=== PATIENT | female | born 1970 | race Caucasian/White ===

== ENCOUNTER 2020-02-23 14:01 | Emergency (ER) | payer OTHER ==
[~2020-02-23] VITALS: Ht 160 cm; Wt 129.5 kg
[~2020-02-23 14:01] MED LIST: CARI350T PO
[2020-02-23] MEDS ORDERED: IV NORMAL SALINE 1,000ML 1,000 ML IV SCH (14:30)
--- NOTE | 2020-02-23 14:34 | RAD ---
Examination: XR CHEST 1V History: dizzy / Comparison/Correlation: None Findings: Portable frontal view chest was obtained. Heart size and pulmonary vasculature are normal. No infiltrate or effusion. Bony structures are unremarkable. No pneumothorax. Impression: No active disease. Electronically signed by: Jovany Gallo MD (02/23/2020 2:31 PM) [id number]
[2020-02-23] MEDS ORDERED: METOCLOPRAMIDE HCL 10 MG/2 ML VIAL. IVP ONE (15:00)
[2020-02-23] MEDS ORDERED: diazePAM 5 MG TABLET. PO ONE (15:00)
[2020-02-23 15:12] LABS: BARBITURATES NEG (NEG); BENZODIAZEPINES NEG (NEG); CANNABINOIDS NEG (NEG); COCAINE NEG (NEG); METHADONE NEG (NEG); OPIATES NEG (NEG); PHENCYCLIDINE NEG (NEG)
[2020-02-23 15:14] LABS: CALCIUM 9.8 mg/dL (8.5-10.1); GFR 58.9; POTASSIUM 4.3 mmol/L (3.5-5.1)
[2020-02-23 15:19] LABS: ALBUMIN 3.8 g/dL (3.4-5.0); ALBUMIN/GLOBULIN RATIO 0.9 (1.0-1.7); MAGNESIUM 2.3 mg/dL (1.8-2.4); TOTAL BILIRUBIN 0.2 mg/dL (0.2-1.0)
[2020-02-23 15:19] LABS: AMPHETAMINE/METHAMPHETAMINE NEG (NEG)
[2020-02-23 15:34] LABS: PREG TEST PT QUAL NEGATIVE (NEG)
[2020-02-23 15:44] VITALS: BP 136/93
[2020-02-23 15:45] LABS: BASO # 0.2 x10^3/uL (0.0-0.2); BASO % 1 % (0-3); EOS # 0.2 x10^3/uL (0.0-0.7); EOS % 1 % (0-3); HEMATOCRIT 44.6 % (36.0-47.0); HEMOGLOBIN 14.8 g/dL (12.0-15.5); LYMPH # 3.8 x10^3/uL (1.0-4.8); LYMPH % 25 % (24-48); MEAN CORPUSCULAR HEMOGLOBIN 28 pg (25-35); MEAN CORPUSCULAR HGB CONC 33 g/dL (31-37); MEAN CORPUSCULAR VOLUME 85 fL (79-100); MONO # 0.9 x10^3/uL (0.0-1.1); MONO % 6 % (0-9); NEUT # 9.9 x10^3uL (1.8-7.7); NEUT % 66 % (31-73); PLATELET COUNT 379 x10^3/uL (140-400); RED BLOOD COUNT 5.24 x10^6/uL (3.50-5.40); RED CELL DISTRIBUTION WIDTH 13.7 % (11.5-14.5); WHITE BLOOD COUNT 15.1 x10^3/uL (4.0-11.0)
[2020-02-23 15:47] LABS: BILIRUBIN,URINE NEG (NEG); CLARITY,URINE CLOUDY; COLOR,URINE YELLOW; GLUCOSE,URINE NEG (NEG); NITRITE,URINE NEG (NEG); UROBILINOGEN,URINE 0.2 mg/dL (0.2 mg/dL)
[2020-02-23 15:49] LABS: BACTERIA,URINE MANY /HPF (0-FEW); SQUAMOUS EPITHELIAL CELL,UR MANY /LPF
--- NOTE | 2020-02-23 16:08 | PHYS DOC ---
Past History Past Medical History: Anxiety, Depression, Other Additional Past Medical Histor: PERIPHERAL NEUROPATHY Past Surgical History: Cholecystectomy, , Hysterectomy, Tubal ligation Alcohol Use: Sober General Adult EDM: Chief Complaint: DIZZY/LIGHT HEADED HPI: HPI: 49-year-old female past medical history significant for anxiety, depression and BPPV, presents to the ED with complaints of "dizziness" described as "I feel like I'm going to fall over," that started yesterday while watching tv. Pt reports sxs only occur with sudden movements or sudden changes in positions ( sitting to standing, etc). States she's had similar sxs before " I found crystals in my right ear." Reports she is out of her Antivert rx. Associated mild nausea. No h/o head/neck trauma or recent URI. No associated hearing loss, tinnitus, syncope or loss of consciousness, vomiting, chest pain, dyspnea, back pain, abnormal gait, neck stiffness, fever, neck pain or blurry vision. Denies any alcohol/illicit drug use. Currently does not have the sxs at rest. Review of Systems: Review of Systems: Constitutional: Denies fever or chills Eyes: Denies change in visual acuity HENT: Denies nasal congestion or sore throat Respiratory: Denies cough or shortness of breath Cardiovascular: Denies chest pain or edema GI: Denies abdominal pain, vomiting, bloody stools or diarrhea : Denies dysuria or hematuria Musculoskeletal: Denies back pain or joint pain Integument: Denies rash Neurologic: Denies headache, focal weakness or sensory changes Endocrine: Denies polyuria or polydipsia Lymphatic: Denies swollen glands Psychiatric: Denies depression or anxiety Current Medications: Current Meds: Current Medications Medications (Trade) Dose Ordered Sig/Talya Start Time Stop Time Status Last Admin Dose Admin Diazepam (Valium) 10 mg 1X ONCE 02/23/20 15:00 02/23/20 15:01 DC 02/23/20 15:22 10 MG Metoclopramide HCl (Reglan Vial) 10 mg 1X ONCE 02/23/20 15:00 02/23/20 15:01 DC 02/23/20 15:20 10 MG Sodium Chloride 1,000 ml @ 1,000 mls/hr Q1H 02/23/20 14:30 02/23/20 15:29 DC 02/23/20 15:19 1,000 MLS/HR Allergies: Allergies: Allergies Coded Allergies Type Severity Reaction Last Updated Verified Penicillins Allergy Unknown 05/01/15 Yes Sulfa (Sulfonamide Antibiotics) Allergy Unknown 05/01/15 Yes ciprofloxacin Allergy Unknown 05/01/15 Yes hydrocodone Allergy Unknown 05/01/15 Yes morphine Allergy Unknown 05/01/15 Yes naproxen Allergy Unknown 05/01/15 Yes Physical Exam: PE: Constitutional: Well developed, well nourished, no acute distress, non-toxic appearance. HENT: Normocephalic, atraumatic, no nystagmus, no nuchal rigidity or meningismus, Eyes: TRAVIS, EOMI, conjunctiva normal, no discharge. Neck: Normal range of motion, supple, Cardiovascular: S1/2 present, regular rhythm Lungs & Thorax: Speaking in full sentences, bilateral equal chest rise, no tachypnea or increased work of breathing Abdomen: soft, no tenderness, Skin: Warm, dry, no erythema, no rash. [] Back: No tenderness, no CVA tenderness. [] Extremities: No tenderness, no cyanosis, no edema Neurologic: Alert and oriented X 3, normal motor function, normal sensory function, no focal deficits noted, CN 2-12 intact, normal FNF/SERJIO, steagy gait- no ataxia, Psychologic: Affect normal, judgement normal, mood normal. [] Current Patient Data: Labs: Laboratory Tests Test 02/23/20 14:30 02/23/20 14:45 Urine Collection Type Unknown Urine Color Yellow Urine Clarity Cloudy Urine pH 6.0 Urine Specific Leiter 1.015 Urine Protein Neg (NEG-TRACE) Urine Glucose (UA) Neg mg/dL (NEG) Urine Ketones (Stick) Neg mg/dL (NEG) Urine Blood Small (NEG) Urine Nitrite Neg (NEG) Urine Bilirubin Neg (NEG) Urine Urobilinogen Dipstick 0.2 mg/dL (0.2 mg/dL) Urine Leukocyte Esterase Neg (NEG) Urine RBC 3-5 /HPF (0-2) Urine WBC 5-10 /HPF (0-4) Urine Squamous Epithelial Cells Many /LPF Urine Bacteria Many /HPF (0-FEW) Urine Opiates Screen Neg (NEG) Urine Methadone Screen Neg (NEG) Urine Barbiturates Neg (NEG) Urine Phencyclidine Screen Neg (NEG) Urine Amphetamine/Methamphetamine Neg (NEG) Urine Benzodiazepines Screen Neg (NEG) Urine Cocaine Screen Neg (NEG) Urine Cannabinoids Screen Neg (NEG) Urine Ethyl Alcohol Neg (NEG) White Blood Count 15.1 x10^3/uL (4.0-11.0) H Red Blood Count 5.24 x10^6/uL (3.50-5.40) Hemoglobin 14.8 g/dL (12.0-15.5) Hematocrit 44.6 % (36.0-47.0) Mean Corpuscular Volume 85 fL (79-100) Mean Corpuscular Hemoglobin 28 pg (25-35) Mean Corpuscular Hemoglobin Concent 33 g/dL (31-37) Red Cell Distribution Width 13.7 % (11.5-14.5) Platelet Count 379 x10^3/uL (140-400) Neutrophils (%) (Auto) 66 % (31-73) Lymphocytes (%) (Auto) 25 % (24-48) Monocytes (%) (Auto) 6 % (0-9) Eosinophils (%) (Auto) 1 % (0-3) Basophils (%) (Auto) 1 % (0-3) Neutrophils # (Auto) 9.9 x10^3uL (1.8-7.7) H Lymphocytes # (Auto) 3.8 x10^3/uL (1.0-4.8) Monocytes # (Auto) 0.9 x10^3/uL (0.0-1.1) Eosinophils # (Auto) 0.2 x10^3/uL (0.0-0.7) Basophils # (Auto) 0.2 x10^3/uL (0.0-0.2) Sodium Level 137 mmol/L (136-145) Potassium Level 4.3 mmol/L (3.5-5.1) Chloride Level 101 mmol/L (98-107) Carbon Dioxide Level 24 mmol/L (21-32) Anion Gap 12 (6-14) Blood Urea Nitrogen 15 mg/dL (7-20) Creatinine 1.0 mg/dL (0.6-1.0) Estimated GFR (Cockcroft-Gault) 58.9 BUN/Creatinine Ratio 15 (6-20) Glucose Level 132 mg/dL (70-99) H Calcium Level 9.8 mg/dL (8.5-10.1) Magnesium Level 2.3 mg/dL (1.8-2.4) Total Bilirubin 0.2 mg/dL (0.2-1.0) Aspartate Amino Transferase (AST) 17 U/L (15-37) Alanine Aminotransferase (ALT) 36 U/L (14-59) Alkaline Phosphatase 102 U/L (46-116) Troponin I Quantitative < 0.017 ng/mL (0-0.055) Total Protein 8.0 g/dL (6.4-8.2) Albumin 3.8 g/dL (3.4-5.0) Albumin/Globulin Ratio 0.9 (1.0-1.7) L Lipase 176 U/L (73-393) Serum Test, Qualitative Negative (NEG) Vital Signs: Vital Signs Date Time Temp Pulse Resp B/P (MAP) Pulse Ox O2 Delivery O2 Flow Rate FiO2 02/23/20 15:22 87 20 146/85 (105) 98 Room Air 02/23/20 14:10 98.2 EKG: EKG: Sinus rhythm 84 bpm, no axis deviation, normal intervals, T wave inversion V2, no ST elevations or ST depressions Radiology/Procedures: Radiology/Procedures: IMAGING REPORT Signed PATIENT: TYRONE GOLDMAN ACCOUNT: [id number] : 1970 LOCATION: ER AGE: 49 SEX: F EXAM STATUS: REG ER ORD. PHYSICIAN: SUHAIL MAYS DO REASON: dizzy PROCEDURE: PORTABLE CHEST 1V Examination: XR CHEST 1V History: dizzy / Comparison/Correlation: None Findings: Portable frontal view chest was obtained. Heart size and pulmonary vasculature are normal. No infiltrate or effusion. Bony structures are unremarkable. No pneumothorax. Impression: No active disease. Electronically signed by: Jovany Salvador MD (02/23/2020 2:31 PM) [id number] DICTATED AND SIGNED BY: OJVANY SALVADOR MD DATE: 02/23/20 143 CC: DRAE STOUT; SUHAIL MAYS DO ~MTH0 0 Heart Score: Risk Factors: Risk Factors: DM, Current or recent (<one month) smoker, HTN, HLP, family history of CAD, obesity. Risk Scores: Score 0 - 3: 2.5% MACE over next 6 weeks - Discharge Home Score 4 - 6: 20.3% MACE over next 6 weeks - Admit for Clinical Observation Score 7 - 10: 72.7% MACE over next 6 weeks - Early Invasive Strategies Course & Med Decision Making: Course & Med Decision Making Pertinent Labs and Imaging studies reviewed. (See chart for details) Concern for brief episodes of vertigo (lasting less than a few minutes), only with quick positional changes. No dizziness in ed-thus hints exam cannot be performed. Valium given in ed. U/A contaminated -no LE/nitrites. Pt with no UTI sxs. Will DC home with Antivert or meclizine. Will discharge home with strict ED return precautions were given for persistent dizziness, inability to ambulate, severe headache, nausea, vomiting or neurologic deficits. Encouraged urgent outpatient follow-up with PMD and ent as an outpatient evaluation for dizziness. Life-threatening processes were considered but are low suspicion at this time, given history, physical exam and ED workup. Pt was educated on all prescription medications and adverse effects. All patient's questions were answered and pt was stable at time of discharge. Life/limb-threatening differential includes but is not limited to, cerebrovascular accident, cerebellar stroke, acute coronary syndrome, carbon monoxide poisoning or other toxidrome, syncope differential including cardiac arrhythmia/PE/aortic aneurysm or dissection/ACS, Guillan [place] syndrome, thyroid disease, infection, central and peripheral vertigo, intracranial hemorrhage, vertebrobasilar insufficiency, heat stroke, electrolyte disorder, rheumatologic or autoimmune disorder I spoken with the patient and her caregivers. I explained the patient's condition, diagnoses and treatment plan based on the information available to me at this time. I have answered the patient and her caregiver's questions and addressed any concerns. The patient and her caregivers have a good understanding of patient's diagnosis, condition and treatment plan as can be expected at this point. Vital signs have been stable. Patient's condition is stable and appropriate for discharge from the emergency department. Patient will pursue further outpatient evaluation with primary care physician or other designated or consulting physician as outlined in the discharge instructions. The patient and/or caregivers are agreeable to this plan of care and follow-up instructions have been explained in detail. The patient and/or caregivers have received these instructions in written form and have expressed an understanding of the discharge instructions. The patient and/or caregivers are aware that any significant change of condition or worsening of symptoms should prompt immediate return to this or the closest emergency department or call to 128Sheyla Brice Disclaimer: Babs Disclaimer: This electronic medical record was generated, in whole or in part, using a voice recognition dictation system. Departure Departure: Impression: Primary Impression: Dizziness Disposition: 01 DC HOME SELF CARE/HOMELESS Condition: STABLE Referrals: DREA STOUT (PCP) within 3- 5 days Patient Instructions: Dizziness, Vertigo Additional Instructions: FOLLOW UP WITH ENT: Kiko Mathias DO [address], [address] [place] [address] OR [phone] & Maxillofacial Surgery, [facility]. [address] [place] [address] EMERGENCY DEPARTMENT GENERAL DISCHARGE INSTRUCTIONS Thank you for coming to [facility] (ED) today and trusting us with you care. We trust that you had a positivie experience in our Emergency Department. If you wish to speak to the department management, you may call the director at [phone]. YOUR FOLLOW UP INSTRUCTIONS ARE FOLLOWS: 1. Do you have a private Doctor? If you do not have a private doctor, please ask for a resource list of physicians or clinics that may be able to assist you with follow up care. 2. The Emergency Physician has interpreted your x-rays. The X-Ray specialist will also review them. If there is a change in the findings, you will be notified in 48 hours when at all possible. 3. A lab test or culture has been done, your results will be reviewed and you will be notified if you need a change in treatment. ADDITIONAL INSTRUCTIONS AND INFORMATION: 1. Your care today has been supervised by a physician who is specially trained in emergency care. Many problems require more than one evaluation for a complete diagnosis and treatment. We recommend that you schedule your follow up appointment as recommended to ensure complete treatment of you illness or injury. If you are unable to obtain follow up care and continue to have a problem, or if your condition worsens, we recommend that you return to the ED. 2. We are not able to safely determine your condition over the phone nor are we able to give sound medical advice over the phone. For these safety reasons, if you call for medical advice we will ask you to come to the ED for further evaluation. 3. If you have any questions regarding these discharge instructions please call the ED at [phone]. SAFETY INFORMATION: In the interest of safety, wellness, and injury prevention; we encourage you to wear your sealbelt, if you smoke; quite smoking, and we encourage family to use a pr otective helmet for bicycling and other sporting events that present an increased risk for head injury. IF YOUR SYMPTOMS WORSEN OR NEW SYMPTOMS DEVELOP, OR YOU HAVE CONCERNS ABOUT YOUR CONDITION; OR IF YOUR CONDITION WORSENS WHILE YOU ARE WAITING FOR YOUR FOLLOW UP APPOINTMENT; EITHER CONTACT YOUR PRIMARY CARE DOCTOR, THE PHYSICIAN WHOSE NAME AND NUMBER YOU WERE GIVEN, OR RETURN TO THE ED IMMEDIATELY. Scripts Ondansetron Hcl (ZOFRAN) 4 Mg Tablet 1 TAB PO PRN Q6HRS PRN for NAUSEA, #20 TAB Prov: SUHAIL MAYS DO 02/23/20 Meclizine Hcl (MECLIZINE HCL) 25 Mg Tablet 1 TAB PO TID for dizziness, #90 TAB Prov: SUHAIL MAYS DO 02/23/20 SUHAIL MAYS DO Feb 23, 2020 16:08
[2020-02-23] MEDS ORDERED: ONDA4TAB7 PO (16:14)
[2020-02-23] MEDS ORDERED: MECL-75 PO (16:14)
--- NOTE | 2020-02-23 20:11 | EKG ---
[address] [address] Test Date: 2020-02-23 Test Time: 15:06:39 Pat Name: TYRONE GOLDMAN Department: Room: Gender: F Tunnel Man: : 1970 Requested By: SUHAIL MAYS Order Number: [id number] Reading MD: Measurements Intervals [place] Rate: 84 P: 38 WA: 178 QRS: 2 QRSD: 78 T: 35 QT: 370 QTc: 440 Interpretive Statements SINUS RHYTHM QRS(T) CONTOUR ABNORMALITY CONSISTENT WITH SEPTAL INFARCT AGE UNDETERMINED ABNORMAL ECG RI6.02 No previous ECG available for comparison
== END 2020-02-23 16:30 | disposition home or self-care (01) ==
LOC: ER 14:01
DX: R42 Dizziness and giddiness (principal); R11.0 Nausea; F41.9 Anxiety disorder, unspecified; F32.9 Major depressive disorder, single episode, unspecified; Z98.51 Tubal ligation status; Z90.49 Acquired absence of other specified parts of digestive tract; Z90.710 Acquired absence of both cervix and uterus; Z98.890 Other specified postprocedural states; Z88.0 Allergy status to penicillin; Z88.2 Allergy status to sulfonamides; Z88.6 Allergy status to analgesic agent; Z88.1 Allergy status to other antibiotic agents; Z88.8 Allergy status to other drugs, medicaments and biological substances
CPT/HCPCS: 36415; 71045; 80053; 80307; 81001; 83690; 83735; 84484; 84703; 85025; 87086; 93005; 96361; 96374; 99285; J2765; J7030

== ENCOUNTER 2020-03-29 10:46 | Emergency (ER) | payer BC, OTHER ==
[~2020-03-29] VITALS: Ht 160 cm; Wt 130.0 kg
[~2020-03-29 10:46] MED LIST changes: +MECL-75 PO; +ONDA4TAB7 PO
[2020-03-29 12:09] LABS: BASO # 0.1 x10^3/uL (0.0-0.2); BASO % 1 % (0-3); EOS # 0.2 x10^3/uL (0.0-0.7); EOS % 2 % (0-3); HEMATOCRIT 38.9 % (36.0-47.0); HEMOGLOBIN 12.9 g/dL (12.0-15.5); LYMPH # 2.4 x10^3/uL (1.0-4.8); LYMPH % 21 % (24-48); MEAN CORPUSCULAR HEMOGLOBIN 29 pg (25-35); MEAN CORPUSCULAR HGB CONC 33 g/dL (31-37); MEAN CORPUSCULAR VOLUME 87 fL (79-100); MONO # 0.6 x10^3/uL (0.0-1.1); MONO % 6 % (0-9); NEUT % 71 % (31-73); PLATELET COUNT 391 x10^3/uL (140-400); RED CELL DISTRIBUTION WIDTH 13.8 % (11.5-14.5); WHITE BLOOD COUNT 11.2 x10^3/uL (4.0-11.0)
[2020-03-29 12:26] LABS: BACTERIA,URINE FEW /HPF (0-FEW); BILIRUBIN,URINE NEG (NEG); CLARITY,URINE HAZY; COLOR,URINE YELLOW; GLUCOSE,URINE NEG (NEG); NITRITE,URINE NEG (NEG); UROBILINOGEN,URINE 0.2 mg/dL (0.2 mg/dL)
[2020-03-29 12:27] LABS: AMORPHOUS SEDIMENT,UR PRESENT /HPF; SQUAMOUS EPITHELIAL CELL,UR MOD /LPF
--- NOTE | 2020-03-29 12:32 | PHYS DOC ---
Past History Past Medical History: Anxiety, Diabetes Additional Past Medical Histor: stomach ulcer Past Surgical History: Appendectomy, Cholecystectomy, , Hysterectomy Alcohol Use: None General Adult EDM: Chief Complaint: ABDOMINAL PAIN HPI: HPI: Patient is a 49-year-old female coming in for upper abdominal pain and left flank pain. Patient states she has a history of gastritis and eat spicy food last night. She felt vibration to bed that symptoms woke her up at 2 AM. Has taken some Tums without improvement. Does not take any daily antacid medications. Patient had nausea without vomiting, has had diarrhea. No headaches, no urinary complaints, no fevers, cough, chest pain. Review of Systems: Review of Systems: All other systems within normal limits except for as noted in the HPI Allergies: Allergies: Allergies Coded Allergies Type Severity Reaction Last Updated Verified Penicillins Allergy Unknown 05/01/15 Yes Sulfa (Sulfonamide Antibiotics) Allergy Unknown 05/01/15 Yes ciprofloxacin Allergy Unknown 05/01/15 Yes hydrocodone Allergy Unknown 05/01/15 Yes morphine Allergy Unknown 05/01/15 Yes naproxen Allergy Unknown 05/01/15 Yes Physical Exam: PE: Constitutional: Well developed, well nourished, no acute distress, non-toxic appearance. [] HENT: Normocephalic, atraumatic, bilateral external ears normal, nose normal. [] Eyes: PERRLA, conjunctiva normal, no discharge. [] Neck: No rigidity, supple, no stridor. [] Cardiovascular: Regular rate and rhythm, brisk cap refill [] Lungs & Thorax: Non labored symmetric respirations, no tachypnea or respiratory distress [] Abdomen: Soft, nondistended, epigastric and right upper quadrant tenderness, no guarding or rebound.. Skin: Warm, dry, no erythema, no rash. [] Back: Unremarkable, left CVA tenderness Extremities: No deformities, range of motion grossly intact, no lower extremity edema [] Neurologic: Alert and oriented X 3, no focal deficits noted. [] Psychologic: Affect normal, judgement normal, mood normal. [] Current Patient Data: Labs: Laboratory Tests Test 03/29/20 11:49 White Blood Count 11.2 x10^3/uL (4.0-11.0) H Red Blood Count 4.50 x10^6/uL (3.50-5.40) Hemoglobin 12.9 g/dL (12.0-15.5) Hematocrit 38.9 % (36.0-47.0) Mean Corpuscular Volume 87 fL (79-100) Mean Corpuscular Hemoglobin 29 pg (25-35) Mean Corpuscular Hemoglobin Concent 33 g/dL (31-37) Red Cell Distribution Width 13.8 % (11.5-14.5) Platelet Count 391 x10^3/uL (140-400) Neutrophils (%) (Auto) 71 % (31-73) Lymphocytes (%) (Auto) 21 % (24-48) L Monocytes (%) (Auto) 6 % (0-9) Eosinophils (%) (Auto) 2 % (0-3) Basophils (%) (Auto) 1 % (0-3) Neutrophils # (Auto) 8.0 x10^3uL (1.8-7.7) H Lymphocytes # (Auto) 2.4 x10^3/uL (1.0-4.8) Monocytes # (Auto) 0.6 x10^3/uL (0.0-1.1) Eosinophils # (Auto) 0.2 x10^3/uL (0.0-0.7) Basophils # (Auto) 0.1 x10^3/uL (0.0-0.2) Vital Signs: Vital Signs Date Time Temp Pulse Resp B/P (MAP) Pulse Ox O2 Delivery O2 Flow Rate FiO2 03/29/20 10:50 98.9 93 16 157/87 (110) 96 Room Air EKG: EKG: [] Radiology/Procedures: Radiology/Procedures: Exam: CT abdomen/pelvis with intravenous contrast Indication: Upper abdominal pain Comparison: None Technique: Helical CT imaging performed of the abdomen and pelvis after the intravenous administration of 75 mL Omnipaque 300 contrast. Sagittal and coronal reformats were obtained. One or more of the following individualized dose reduction techniques were utilized for this examination: 1. Automated exposure control 2. Adjustment of the mA and/or kV according to patient size 3. Use of iterative reconstruction technique. Findings: Lower chest: Minimal atelectasis in the lung bases. Heart is normal in size. Liver: Liver is mildly enlarged measuring 20 cm. No focal lesion. Gallbladder/Biliary Tree: The gallbladder is not visualized. Bile ducts are normal. Pancreas: Normal. Spleen: Normal. Adrenal Glands: Normal. Kidneys/Ureters/Bladder: Kidneys, ureters, and bladder are normal. Reproductive Organs: Uterus is surgically absent. No adnexal mass. Stomach, small bowel, and colon: Stomach, small bowel, and colon are normal. Appendix is not visualized. Vasculature: Abdominal aorta is normal in caliber. Lymph Nodes: There are few prominent portacaval lymph nodes measuring up to 1 cm short axis, nonspecific. Peritoneum and retroperitoneum: No free fluid or free air. Bones: No acute osseous abnormality. Impression: 1. No acute abnormality. 2. Mild hepatomegaly.[] Heart Score: Risk Factors: Risk Factors: DM, Current or recent (<one month) smoker, HTN, HLP, family history of CAD, obesity. Risk Scores: Score 0 - 3: 2.5% MACE over next 6 weeks - Discharge Home Score 4 - 6: 20.3% MACE over next 6 weeks - Admit for Clinical Observation Score 7 - 10: 72.7% MACE over next 6 weeks - Early Invasive Strategies Course & Med Decision Making: Course & Med Decision Making Pertinent Labs and Imaging studies reviewed. (See chart for details) [] Dragon Disclaimer: Dragon Disclaimer: This electronic medical record was generated, in whole or in part, using a voice recognition dictation system. Departure Departure: Impression: Primary Impression: Gastroenteritis Disposition: 01 DC HOME SELF CARE/HOMELESS Condition: STABLE Referrals: DREA STOUT (PCP) Patient Instructions: Diet for Gastroesophageal Reflux Disease, Adult Scripts Ondansetron (ONDANSETRON ODT) 4 Mg Tab.rapdis 1 TAB PO PRN Q6-8HRS PRN for na for 5 Days, #16 TAB Prov: SANDRA JO MD 03/29/20 Dicyclomine Hcl (DICYCLOMINE HCL) 20 Mg Tablet 1 TAB PO TID PRN for ABDOMINAL CRAMPS for 5 Days, #15 TAB 1 Refill Prov: SANDRA JO MD 03/29/20 SANDRA JO MD Mar 29, 2020 12:32
[2020-03-29] MEDS ORDERED: IOHEXOL 300 MG/ML 75 ML VIAL. PO ONE (13:00)
[2020-03-29 13:53] LABS: CALCIUM 8.9 mg/dL (8.5-10.1); GFR 58.9; POTASSIUM 3.9 mmol/L (3.5-5.1)
[2020-03-29 13:58] LABS: ALBUMIN 3.2 g/dL (3.4-5.0); ALBUMIN/GLOBULIN RATIO 0.8 (1.0-1.7); TOTAL BILIRUBIN 0.2 mg/dL (0.2-1.0); TOTAL PROTEIN 7.4 g/dL (6.4-8.2)
[2020-03-29 14:17] VITALS: BP 142/70
[2020-03-29] MEDS ORDERED: LIDO:MAALOX 1:1 20 ML SINGLE DOSE. PO ONE (14:30)
--- NOTE | 2020-03-29 14:52 | RAD ---
Exam: CT abdomen/pelvis with intravenous contrast Indication: Upper abdominal pain Comparison: None Technique: Helical CT imaging performed of the abdomen and pelvis after the intravenous administratio n of 75 mL Omnipaque 300 contrast. Sagittal and coronal reformats were obtained. One or more of the following individualized dose reduction techniques were utilized for this examinat ion: 1. Automated exposure control 2. Adjustment of the mA and/or kV according to patient size 3. Use of iterative reconstruction technique. Findings: Lower chest: Minimal atelectasis in the lung bases. Heart is normal in size. Liver: Liver is mildly enlarged measuring 20 cm. No focal lesion. Gallbladder/Biliary Tree: The gallbladder is not visualized. Bile ducts are normal. Pancreas: Normal. Spleen: Normal. Adrenal Glands: Normal. Kidneys/Ureters/Bladder: Kidneys, ureters, and bladder are normal. Reproductive Organs: Uterus is surgically absent. No adnexal mass. Stomach, small bowel, and colon: Stomach, small bowel, and colon are normal. Appendix is not visualiz ed. Vasculature: Abdominal aorta is normal in caliber. Lymph Nodes: There are few prominent portacaval lymph nodes measuring up to 1 cm short axis, nonspeci fic. Peritoneum and retroperitoneum: No free fluid or free air. Bones: No acute osseous abnormality. Impression: 1. No acute abnormality. 2. Mild hepatomegaly. Electronically signed by: Aleja Amezquita MD (03/29/2020 2:49 PM) [id number]
[2020-03-29] MEDS ORDERED: ONDA4TAB12 PO (15:04)
[2020-03-29] MEDS ORDERED: DICY20TA3 PO (15:04)
== END 2020-03-29 15:10 | disposition home or self-care (01) ==
LOC: ER 10:46
DX: K52.9 Noninfective gastroenteritis and colitis, unspecified (principal); R10.13 Epigastric pain; R10.11 Right upper quadrant pain; E11.9 Type 2 diabetes mellitus without complications; F41.9 Anxiety disorder, unspecified; Z90.49 Acquired absence of other specified parts of digestive tract; Z90.89 Acquired absence of other organs; Z98.890 Other specified postprocedural states; Z90.710 Acquired absence of both cervix and uterus; Z88.0 Allergy status to penicillin; Z88.2 Allergy status to sulfonamides; Z88.5 Allergy status to narcotic agent; Z88.1 Allergy status to other antibiotic agents
CPT/HCPCS: 36415; 74177; 80053; 81001; 83690; 85025; 99285; Q9967

== ENCOUNTER 2020-07-22 22:02 | Emergency (ER) | payer BC, OTHER ==
[~2020-07-22] VITALS: Ht 160 cm; Wt 127.0 kg
[~2020-07-22 22:02] MED LIST changes: +DICY20TA3 PO; +ONDA4TAB12 PO
[2020-07-22] MEDS ORDERED: predniSONE 20 MG TABLET PO ONE (22:30)
[2020-07-22] MEDS ORDERED: PRED20TA PO (22:31)
--- NOTE | 2020-07-22 22:31 | PHYS DOC ---
Past History Past Medical History: Anxiety, Diabetes Additional Past Medical Histor: stomach ulcer Past Surgical History: Appendectomy, Cholecystectomy, , Hysterectomy Alcohol Use: None General Adult EDM: Chief Complaint: HIP PAIN HPI: HPI: 49-year-old female presents with right hip pain. The patient states she has had increased pain over the last 2 days. It is mostly painful as she walks or when her hip flexes. She points to the lateral part of the hip as the source of pain. She denies any falls or trauma. She tells me that she has some kind of a degenerative bone disorder. She is able to walk. She has no other complaints at this time. Review of Systems: Review of Systems: Constitutional: Denies fever or chills Eyes: Denies change in visual acuity HENT: Denies nasal congestion or sore throat Respiratory: Denies cough or shortness of breath Cardiovascular: Denies chest pain or edema GI: Denies abdominal pain, nausea, vomiting, bloody stools or diarrhea : Denies dysuria Musculoskeletal: Right hip pain Integument: Denies rash Neurologic: Denies headache, focal weakness or sensory changes Endocrine: Denies polyuria or polydipsia Lymphatic: Denies swollen glands Psychiatric: Denies depression or anxiety Allergies: Allergies: Allergies Coded Allergies Type Severity Reaction Last Updated Verified Penicillins Allergy Unknown 05/01/15 Yes Sulfa (Sulfonamide Antibiotics) Allergy Unknown 05/01/15 Yes ciprofloxacin Allergy Unknown 05/01/15 Yes hydrocodone Allergy Unknown 05/01/15 Yes morphine Allergy Unknown 05/01/15 Yes naproxen Allergy Unknown 05/01/15 Yes Physical Exam: PE: Constitutional: Well developed, well nourished, morbidly obese, no acute distress, non-toxic appearance. [] HENT: Normocephalic, atraumatic, bilateral external ears normal, oropharynx moist, no oral exudates, nose normal. [] Eyes: PERRLA, EOMI, conjunctiva normal, no discharge. [] Neck: Normal range of motion, no tenderness, supple, no stridor. [] Cardiovascular:Heart rate regular rhythm, no murmur [] Lungs & Thorax: Bilateral breath sounds clear to auscultation [] Abdomen: Bowel sounds normal, soft, no tenderness, no masses, no pulsatile masses. [] Skin: Warm, dry, no erythema, no rash. [] Back: No tenderness, no CVA tenderness. [] Extremities: Tenderness over the right femur greater tuberosity. No obvious erythema, warmth, or ecchymosis of the skin. [] Neurologic: Alert and oriented X 3, normal motor function, normal sensory function, no focal deficits noted. [] Psychologic: Affect normal, judgement normal, mood normal. [] EKG: EKG: [] Radiology/Procedures: Radiology/Procedures: [] Heart Score: C/O Chest Pain: N/A Risk Factors: Risk Factors: DM, Current or recent (<one month) smoker, HTN, HLP, family history of CAD, obesity. Risk Scores: Score 0 - 3: 2.5% MACE over next 6 weeks - Discharge Home Score 4 - 6: 20.3% MACE over next 6 weeks - Admit for Clinical Observation Score 7 - 10: 72.7% MACE over next 6 weeks - Early Invasive Strategies Course & Med Decision Making: Course & Med Decision Making Pertinent Labs and Imaging studies reviewed. (See chart for details) Patient appears to have trochanteric bursitis. I will treat her with prednisone for 4 days. We will give the first dose in the ED. She is stable for discharge at this time. [] Dragon Disclaimer: Dragon Disclaimer: This electronic medical record was generated, in whole or in part, using a voice recognition dictation system. Departure Departure: Impression: Primary Impression: Trochanteric bursitis, right hip Disposition: HOME / SELF CARE / HOMELESS Condition: STABLE Referrals: DREA STOUT (PCP) Patient Instructions: Trochanteric Bursitis-SportsMed Scripts Prednisone (PREDNISONE) 20 Mg Tablet 3 TAB PO DAILY for trochanteric bursitis for 3 Days, #9 TAB Prov: RADHA BAKER DO 07/22/20 RADHA BAKER DO Jul 22, 2020 22:31
[2020-07-22 22:45] VITALS: BP 149/90
== END 2020-07-22 22:45 | disposition home or self-care (01) ==
LOC: ER 22:02
DX: M70.61 Trochanteric bursitis, right hip (principal); E66.01 Morbid (severe) obesity due to excess calories; F41.9 Anxiety disorder, unspecified; E11.9 Type 2 diabetes mellitus without complications; Z68.42 Body mass index [BMI] 45.0-49.9, adult; Z88.0 Allergy status to penicillin; Z88.2 Allergy status to sulfonamides; Z88.1 Allergy status to other antibiotic agents; Z88.5 Allergy status to narcotic agent; Z88.8 Allergy status to other drugs, medicaments and biological substances; Y93.89 Activity, other specified
CPT/HCPCS: 99283; J7512

== ENCOUNTER → 2020-10-10 | Outpatient (CLI) | payer BC ==
[~2020-10-10] MED LIST changes: +PRED20TA PO
[2020-10-10 10:48] LABS: BASO # 0.1 x10^3/uL (0.0-0.2); BASO % 1 % (0-3); EOS # 0.3 x10^3/uL (0.0-0.7); EOS % 4 % (0-3); HEMATOCRIT 40.5 % (36.0-47.0); HEMOGLOBIN 13.6 g/dL (12.0-15.5); LYMPH # 3.2 x10^3/uL (1.0-4.8); LYMPH % 35 % (24-48); MEAN CORPUSCULAR HEMOGLOBIN 29 pg (25-35); MEAN CORPUSCULAR HGB CONC 34 g/dL (31-37); MEAN CORPUSCULAR VOLUME 87 fL (79-100); MONO # 0.7 x10^3/uL (0.0-1.1); MONO % 8 % (0-9); NEUT # 4.7 x10^3uL (1.8-7.7); NEUT % 53 % (31-73); PLATELET COUNT 330 x10^3/uL (140-400); RED BLOOD COUNT 4.68 x10^6/uL (3.50-5.40); RED CELL DISTRIBUTION WIDTH 13.7 % (11.5-14.5)
[2020-10-10 11:00] LABS: ALBUMIN 3.4 g/dL (3.4-5.0); ALBUMIN/GLOBULIN RATIO 0.9 (1.0-1.7); CALCIUM 8.3 mg/dL (8.5-10.1); CREATININE 0.9 mg/dL (0.6-1.0); GFR 66.3; POTASSIUM 4.1 mmol/L (3.5-5.1); TOTAL BILIRUBIN 0.2 mg/dL (0.2-1.0); TOTAL PROTEIN 7.2 g/dL (6.4-8.2)
== END ==
LOC: LAB 10:20
PROVIDERS: ATTEND Clinical Nurse Specialist Psychiatric/Mental Health, Adult
DX: Z79.899 Other long term (current) drug therapy (principal)
CPT/HCPCS: 36415; 80053; 80061; 84146; 85025

== ENCOUNTER 2020-11-16 08:07 | Emergency (ER) | payer BC ==
[~2020-11-16] VITALS: Ht 160 cm; Wt 127.0 kg
--- NOTE | 2020-11-16 08:29 | PHYS DOC ---
Past History Past Medical History: Anxiety, Diabetes Additional Past Medical Histor: stomach ulcer Past Surgical History: Appendectomy, Cholecystectomy, , Hysterectomy Alcohol Use: None General Adult EDM: Chief Complaint: WEAKNESS/GENERALIZED HPI: HPI: 50-year-old female presents with generalized weakness, body aches, nausea, fatigue. The patient started to feel this way this morning. She was feeling normal yesterday. When she got up this morning she was feeling weak and tired. She took her dog for morning walk and felt even worse when she got back. She has had body aches and nausea since that time. She does not know if she has had a fever. She denies chills. The patient is not vaccinated against COVID-19. She has never been tested. She is also curious about her blood sugar but is not on any diabetes medications. She has no other complaints at this time. Review of Systems: Review of Systems: Constitutional: Body aches, fatigue. Denies fever or chills Eyes: Denies change in visual acuity HENT: Denies nasal congestion or sore throat Respiratory: Denies cough or shortness of breath Cardiovascular: Denies chest pain or edema GI: Denies abdominal pain, nausea, vomiting, bloody stools or diarrhea : Denies dysuria Musculoskeletal: Denies back pain or joint pain Integument: Denies rash Neurologic: Denies headache, focal weakness or sensory changes Endocrine: Denies polyuria or polydipsia Lymphatic: Denies swollen glands Psychiatric: Denies depression or anxiety Allergies: Allergies: Allergies Coded Allergies Type Severity Reaction Last Updated Verified Penicillins Allergy Unknown 05/01/15 Yes Sulfa (Sulfonamide Antibiotics) Allergy Unknown 05/01/15 Yes ciprofloxacin Allergy Unknown 05/01/15 Yes hydrocodone Allergy Unknown 05/01/15 Yes morphine Allergy Unknown 05/01/15 Yes naproxen Allergy Unknown 05/01/15 Yes Physical Exam: PE: Constitutional: Well developed, well nourished, morbidly obese, no acute distress, non-toxic appearance. [] HENT: Normocephalic, atraumatic, bilateral external ears normal, oropharynx moist, no oral exudates, nose normal. [] Eyes: PERRLA, EOMI, conjunctiva normal, no discharge. [] Neck: Normal range of motion, no tenderness, supple, no stridor. [] Cardiovascular: Heart rate regular rhythm, no murmur [] Lungs & Thorax: Bilateral breath sounds clear to auscultation [] Abdomen: Bowel sounds normal, soft, epigastric tenderness, no masses, no pulsatile masses. [] Skin: Warm, dry, no erythema, no rash. [] Back: No tenderness, no CVA tenderness. [] Extremities: No tenderness, no cyanosis, no clubbing, ROM intact, no edema. [] Neurologic: Alert and oriented X 3, normal motor function, normal sensory function, no focal deficits noted. [] Psychologic: Affect normal, judgement normal, mood normal. [] Current Patient Data: Vital Signs: Vital Signs Date Time Temp Pulse Resp B/P (MAP) Pulse Ox O2 Delivery O2 Flow Rate FiO2 11/16/20 08:15 97.9 66 16 133/79 (97) 94 Room Air EKG: EKG: [] Radiology/Procedures: Radiology/Procedures: [] Impressions: Exam Date: 11/16/2020 8:39 AM XR CHEST 1V Indication: Reason: covid / Spl. Instructions: beads on shirt / History: . Comparison: February 23, 2020 FINDINGS/ IMPRESSION: Small radiodensities noted which are on the patient's clothing. The cardiac silhouette and pulmonary vasculature are within normal limits. There is no focal consolidation, pleural effusion or pneumothorax. The visualized osseous structures are intact. Electronically signed by: Yoel Taylor MD (11/16/2020 9:03 AM) [facility] DICTATED AND SIGNED BY: YOEL TAYLOR MD DATE: 11/16/20 0902 CC: RADHA BAKER DO; DREA STOUT ~MTH0 0 Heart Score: C/O Chest Pain: N/A Risk Factors: Risk Factors: DM, Current or recent (<one month) smoker, HTN, HLP, family history of CAD, obesity. Risk Scores: Score 0 - 3: 2.5% MACE over next 6 weeks - Discharge Home Score 4 - 6: 20.3% MACE over next 6 weeks - Admit for Clinical Observation Score 7 - 10: 72.7% MACE over next 6 weeks - Early Invasive Strategies Course & Med Decision Making: Course & Med Decision Making Pertinent Labs and Imaging studies reviewed. (See chart for details) The patient's chest x-ray is negative for acute findings. We have given the patient a liter normal saline and 4 mg of Zofran. The patient has had no vomiting in the ER. Chest x-ray is negative for acute findings. Labs are unremarkable. The patient had some chest wall pain that was resolved with my 50 mcg of fentanyl. I suspect she likely has COVID-19. That test is pending. She is stable for discharge at this time. [] Dragon Disclaimer: Dragon Disclaimer: This electronic medical record was generated, in whole or in part, using a voice recognition dictation system. Departure Departure: Impression: Primary Impression: Suspected 2019 novel coronavirus infection Referrals: DREA STOUT (PCP) Additional Instructions: You have been tested for or diagnosed with COVID-19. It is an infection caused by a new type of coronavirus. COVID-19 will cause cold-like or mild flu symptoms in most. It can cause more severe symptoms like problems breathing in some. There is no treatment for COVID-19. The body will clear the infection over time. Self-care will help to ease discomfort. Steps to Take: Self-Care Rest as needed. Healthy habits may help you feel better. Steps include: Choose healthy foods including fruits and vegetables. Drink water throughout the day. Get plenty of sleep each night. If you smoke, try to quit. It may ease breathing. Avoid alcohol. Keep Others Healthy The virus can spread to others. Droplets are released every time you sneeze or cough. The droplets can get into the mouth, nose, or eyes of people near you and lead to infection. To lower the chances of spreading COVID-19 to others: Stay at home until your doctor has said it is safe to leave. If you tested positive this will mean staying isolated until both of the following are true: At least 7 days have passed since the start of illness. You are free of fever for at least 72 hours without the use of medicine. During this time: - Avoid public areas, events, or transportation. Do not return to work or school until your doctor has said it is safe to do so. - Call ahead if you need to go to a medical center. Let them know you may have COVID-19. It will help them guide you where to go. They may also ask you to wear a facemask when you come to the office. - If you call for emergency medical services, let them know you may have COVID-19. While at home: - Try to avoid close contact with others. Stay about 6 feet away. - If possible, spend most of your time in a separate room from others. - Use a face mask if you will be in close contact with others such as sharing a room or vehicle. - Have someone wipe down common surfaces in the home. Use household customer care team coach every day on areas like doorknobs, counters, or sinks. - Cough or sneeze into a tissue. Throw the tissue away right after use. If a tissue is not available, cough or sneeze into your elbow. - Wash your hands often. Wash them after sneezing or coughing. Use soap and water and wash for at least 20 seconds. Alcohol based hand glove cleaner can be used if soap and water is not available. - Do not prepare food for others. Avoid sharing personal items like forks, spoons, or toothbrushes. - Avoid close contact with pets while you are sick. There is no evidence of the virus passing to pets. This is a safety step until more is known about this virus. Isolation can be frustrating. Social interaction can help. Keep in touch with friends and family through phone and tech options. You can still interact with others in your home, just keep a safe distance of about 6 feet. Follow-up: Your doctors office will check in with you to see if there are any changes in your health. You may be asked to keep track of symptoms to share with them. They will also let you know when you are clear to be in public again. Problems to Look Out For: Contact your doctor if your recovery is not going as you expect. Get emergency care if you have problems such as: - Trouble breathing - Nonstop chest pain or pressure - Changes in awareness, confusion, or problems waking - Lips or face have bluish color - Worsening of symptoms If you think you have an emergency, call for emergency medical services right away. As taken from [facility] RADHA Mix DO Nov 16, 2020 08:29
[2020-11-16] MEDS ORDERED: ONDANSETRON PF 4 MG/2 ML VIAL. IVP ONE (08:30)
[2020-11-16] MEDS ORDERED: IV NORMAL SALINE 1,000ML 1,000 ML IV ONE (08:30)
--- NOTE | 2020-11-16 09:05 | RAD ---
Exam Date: 11/16/2020 8:39 AM XR CHEST 1V Indication: Reason: covid / Spl. Instructions: beads on shirt / History: . Comparison: February 23, 2020 FINDINGS/ IMPRESSION: Small radiodensities noted which are on the patient's clothing. The cardiac silhouette and pulmonary vasculature are within normal limits. There is no focal consolidation, pleural effusion or pneumothorax. The visualized osseous structures are intact. Electronically signed by: Scott Taylor MD (11/16/2020 9:03 AM) [facility]
[2020-11-16 09:20] LABS: BASO # 0.1 x10^3/uL (0.0-0.2); BASO % 1 % (0-3); EOS # 0.2 x10^3/uL (0.0-0.7); EOS % 2 % (0-3); HEMATOCRIT 40.6 % (36.0-47.0); HEMOGLOBIN 13.6 g/dL (12.0-15.5); LYMPH # 2.7 x10^3/uL (1.0-4.8); LYMPH % 30 % (24-48); MEAN CORPUSCULAR HEMOGLOBIN 29 pg (25-35); MEAN CORPUSCULAR HGB CONC 33 g/dL (31-37); MEAN CORPUSCULAR VOLUME 87 fL (79-100); MONO # 0.7 x10^3/uL (0.0-1.1); MONO % 8 % (0-9); NEUT # 5.3 x10^3uL (1.8-7.7); NEUT % 59 % (31-73); PLATELET COUNT 324 x10^3/uL (140-400); RED BLOOD COUNT 4.66 x10^6/uL (3.50-5.40); RED CELL DISTRIBUTION WIDTH 13.4 % (11.5-14.5); WHITE BLOOD COUNT 8.9 x10^3/uL (4.0-11.0)
[2020-11-16 09:27] LABS: CALCIUM 8.9 mg/dL (8.5-10.1); CREATININE 1.1 mg/dL (0.6-1.0); GFR 52.6; POTASSIUM 4.5 mmol/L (3.5-5.1)
[2020-11-16 09:34] LABS: ALBUMIN 3.3 g/dL (3.4-5.0); ALBUMIN/GLOBULIN RATIO 0.8 (1.0-1.7); TOTAL BILIRUBIN 0.4 mg/dL (0.2-1.0); TOTAL PROTEIN 7.5 g/dL (6.4-8.2)
[2020-11-16 11:43] LABS: BACTERIA,URINE MOD /HPF (0-FEW); BILIRUBIN,URINE NEG (NEG); CLARITY,URINE HAZY; COLOR,URINE YELLOW; GLUCOSE,URINE NEG (NEG); NITRITE,URINE NEG (NEG); RBC,URINE OCC /HPF (0-2); SQUAMOUS EPITHELIAL CELL,UR MOD /LPF; UROBILINOGEN,URINE 0.2 mg/dL (0.2 mg/dL)
[2020-11-16 11:59] VITALS: BP 130/68
--- NOTE | 2020-11-17 07:52 | NUR ---
IP: Attempted to notify patient of negative COVID19 test result. Voicemail message left to please return call at number provided.
--- NOTE | 2020-11-17 08:14 | NUR ---
IP: Patient notified of negative COVID19 test result. Verbalized understanding.
== END 2020-11-16 12:01 | disposition home or self-care (01) ==
LOC: ER 08:07
DX: R53.1 Weakness (principal); R11.0 Nausea; R53.83 Other fatigue; E11.9 Type 2 diabetes mellitus without complications; Z20.822 Contact with and (suspected) exposure to COVID-19; Z88.0 Allergy status to penicillin; Z88.2 Allergy status to sulfonamides; Z88.1 Allergy status to other antibiotic agents; Z88.5 Allergy status to narcotic agent; Z88.8 Allergy status to other drugs, medicaments and biological substances
CPT/HCPCS: 36415; 71045; 80053; 81001; 84484; 85025; 87086; 96361; 96374; 96375; 99284; C9803; J2405; J3010; J7030; U0003

== ENCOUNTER → 2020-11-18 | Outpatient (CLI) | payer BC ==
[2020-11-16 11:59] VITALS: BP 130/68
[2020-11-18 10:43] LABS: BASO # 0.1 x10^3/uL (0.0-0.2); BASO % 1 % (0-3); EOS # 0.3 x10^3/uL (0.0-0.7); EOS % 3 % (0-3); HEMATOCRIT 40.9 % (36.0-47.0); HEMOGLOBIN 13.5 g/dL (12.0-15.5); LYMPH # 2.9 x10^3/uL (1.0-4.8); LYMPH % 31 % (24-48); MEAN CORPUSCULAR HEMOGLOBIN 29 pg (25-35); MEAN CORPUSCULAR HGB CONC 33 g/dL (31-37); MEAN CORPUSCULAR VOLUME 87 fL (79-100); MONO # 0.7 x10^3/uL (0.0-1.1); MONO % 8 % (0-9); NEUT # 5.2 x10^3uL (1.8-7.7); NEUT % 57 % (31-73); PLATELET COUNT 362 x10^3/uL (140-400); RED CELL DISTRIBUTION WIDTH 13.5 % (11.5-14.5); WHITE BLOOD COUNT 9.2 x10^3/uL (4.0-11.0)
[2020-11-18 11:06] LABS: ALBUMIN 3.6 g/dL (3.4-5.0); ALBUMIN/GLOBULIN RATIO 0.9 (1.0-1.7); C REACTIVE PROTEIN 19.2 mg/L (0-3.3); CALCIUM 9.5 mg/dL (8.5-10.1); GFR 58.7; POTASSIUM 4.5 mmol/L (3.5-5.1); TOTAL BILIRUBIN 0.3 mg/dL (0.2-1.0); TOTAL PROTEIN 7.8 g/dL (6.4-8.2)
[2020-11-18 12:51] LABS: SEDIMENTATION RATE 34 (0-25)
--- NOTE | 2020-11-18 17:48 | RAD ---
EXAM: XR THORACIC SPINE 3VIEWS, XR LUMBAR SPINE 2-3V 11/18/2020 9:48 AM CLINICAL INDICATION: Back pain COMPARISON: Lumbar spine radiograph 07/13/2012 FINDINGS: Thoracic spine: 3 views were obtained. There is no acute fracture. Alignment is normal. Minimal degen erative changes with tiny anterior osteophytes in the mid and lower thoracic spine. Lumbar spine: 3 views were obtained. There are 5 nonrib-bearing lumbar vertebral bodies. No acute fra cture. Alignment is normal. Disc spaces are maintained. There are tiny anterior osteophytes L1-L2 thr ough L4-L5. Mild facet arthrosis at L4-L5 and L5-S1. IMPRESSION: 1. Minimal degenerative disc disease in the thoracic and lumbar spine. 2. There is mild facet arthrosis at L5-S1.. Electronically signed by: Aleja Amezquita MD (11/18/2020 5:46 PM) [id number]
[2020-11-18 19:35] LABS: FREE T4 0.74 ng/dL (0.76-1.46); THYROID STIM HORMONE (TSH) 2.211 uIU/mL (0.358-3.740)
[2020-11-18 22:11] LABS: HEMOGLOBIN A1C 5.9 % (4.8-5.6)
== END ==
LOC: RAD 09:42
PROVIDERS: ATTEND Family Medicine
DX: M51.35 Other intervertebral disc degeneration, thoracolumbar region (principal); M47.817 Spondylosis without myelopathy or radiculopathy, lumbosacral region; M25.78 Osteophyte, vertebrae; R29.898 Other symptoms and signs involving the musculoskeletal system; R53.83 Other fatigue; M94.0 Chondrocostal junction syndrome [Tietze]
CPT/HCPCS: 36415; 72072; 72100; 80053; 83036; 84439; 84443; 85025; 85651; 86140

== ENCOUNTER 2020-12-13 01:00 | Observation (INO) | payer BC ==
[~2020-12-13] VITALS: Ht 162.6 cm; Wt 125.5 kg
[~2020-12-13 01:00] MED LIST changes: +DICY20TA PO; -DICY20TA3 PO
--- NOTE | 2020-12-13 01:07 | PHYS DOC ---
Past History Past Medical History: Anxiety, Diabetes Additional Past Medical Histor: stomach ulcer Past Surgical History: Appendectomy, Cholecystectomy, , Hysterectomy Alcohol Use: None General Adult HPI: HPI: ".. I was doing dishes.. and got this chest pain here on Lt. .. and under my breast.. " Patient is a 50 year old female who presents with above hx and complaints central left chest pain. Pain started acutely while doing dishes. Pain radiates to left shoulder. Pt. does state there is some increase of pain with deep breaths. Pt. currently rates pain as 8/10. Patient relates she had a similar pain approximately 5 years ago and underwent a heart cath at [facility]. Patient states at that time no acute pathology was found. Patient denies any trauma. No recent travel. No specific ill contacts. No history mental suppression. Patient not had COVID vaccination. Patient does have history of narcotic abuse but states she has been clean for the past 2 years. Review of Systems: Review of Systems: Constitutional: Denies fever or chills Eyes: Denies change in visual acuity HENT: Denies nasal congestion or sore throat Respiratory: Denies cough or shortness of breath Cardiovascular: Complaints of chest pain . GI: Denies abdominal pain, nausea, vomiting, bloody stools or diarrhea : Denies dysuria Musculoskeletal: Denies back pain or joint pain Integument: Denies rash Neurologic: Denies headache, focal weakness or sensory changes Endocrine: Denies polyuria or polydipsia Lymphatic: Denies swollen glands Psychiatric: Denies depression or anxiety Family History: Family History: Noncontributory to presentation Current Medications: Current Meds: See nursing for home meds Allergies: Allergies: Allergies Coded Allergies Type Severity Reaction Last Updated Verified Penicillins Allergy Unknown 05/01/15 Yes Sulfa (Sulfonamide Antibiotics) Allergy Unknown 05/01/15 Yes ciprofloxacin Allergy Unknown 05/01/15 Yes hydrocodone Allergy Unknown 05/01/15 Yes morphine Allergy Unknown 05/01/15 Yes naproxen Allergy Unknown 05/01/15 Yes Physical Exam: PE: Constitutional: Moderate acute distress, non-toxic appearance. [] HENT: Normocephalic, atraumatic, bilateral external ears normal, oropharynx moist, no oral exudates, nose normal. [] Eyes: PERRLA, EOMI, conjunctiva normal, no discharge. [] Neck: Normal range of motion, no tenderness, supple, no stridor. [] Cardiovascular:Heart rate regular rhythm, no murmur [] Lungs & Thorax: Bilateral breath sounds apex on auscultation [] Abdomen: Bowel sounds normal, soft, no tenderness, no masses, no pulsatile masses. Morbidly obese. Skin: Warm, dry, no erythema, no rash. Tattoos Back: No tenderness, no CVA tenderness. [] Extremities: No tenderness, no cyanosis, no clubbing, ROM intact, trace ankle edema. [] No cording appreciated Neurologic: Alert and oriented X 3, normal motor function, normal sensory function, no focal deficits noted. [] Psychologic: Affect anxious, judgement normal, mood normal. [] EKG: EKG: My interpretation EKG shows a sinus rhythm with baseline tremor artifact. Sinus rate of 81. Slightly prolonged QT interval at 444 ms. QTC is 522 ms. No findings of acute STEMI of contralateral changes. [] Radiology/Procedures: Radiology/Procedures: [][place] [address] Impressions: [place] [address] IMAGING REPORT Signed PATIENT: TYRONE GOLDMAN ACCOUNT: [id number] : 1970 LOCATION: ER AGE: 50 SEX: F EXAM STATUS: PRE ER ORD. PHYSICIAN: MARLENE ALMARAZ MD REASON: cp PROCEDURE: PORTABLE CHEST 1V EXAMINATION: XR CHEST 1V CLINICAL HISTORY: Chest pain EXAM DATE/TIME: 12/13/2020 1:16 AM COMPARISON: 11/16/2020 FINDINGS: Lines, Tubes, and Devices: None. Cardiomediastinal Silhouette: Within normal limits. Lungs and Pleura: No evidence of focal airspace consolidation or pleural effusion. Pulmonary vasculature unremarkable. Bones and Soft Tissues: No acute osseous abnormality. IMPRESSION: No evidence of acute cardiopulmonary abnormality or significant interval change. Electronically signed by: Nilay Cruz DO (12/13/2020 1:27 AM) [facility] DICTATED AND SIGNED BY: NILAY CRUZ DO DATE: 12/13/20 0126 CC: MARLENE ALMARAZ MD; DREA STOUT ~MTH0 0 Heart Score: C/O Chest Pain: Yes HEART Score for Chest Pain: HEART Score for Chest Pain Response (Comments) Value History Slighlty/Non-Suspicious 0 ECG Nonspecific Repolarizatio 1 Age >45 - < 65 1 Risk Factors 1 or 2 Risk Factors 1 Troponin < Normal Limit 0 Total 3 Risk Factors: Risk Factors: DM, Current or recent (<one month) smoker, HTN, HLP, family history of CAD, obesity. Risk Scores: Score 0 - 3: 2.5% MACE over next 6 weeks - Discharge Home Score 4 - 6: 20.3% MACE over next 6 weeks - Admit for Clinical Observation Score 7 - 10: 72.7% MACE over next 6 weeks - Early Invasive Strategies Course & Med Decision Making: Course & Med Decision Making Pertinent Labs and Imaging studies reviewed. (See chart for details) Discussed presentation, testing and tx. plan with Dr. Gomez. Advised to admit to his service - observation status Impression: 1. Chest Pain 2. Morbid Obesity 3. Mild Elevation of Glucose = 137 [] Dragon Disclaimer: Dragon Disclaimer: This electronic medical record was generated, in whole or in part, using a voice recognition dictation system. Departure Departure: Referrals: DREA STOUT (PCP) Babs Disclaimer This chart was dictated in whole or in part using Voice Recognition software in a busy, high-work load, and often noisy Emergency Department environment. It may contain unintended and wholly unrecognized errors or omissions. Dragon Disclaimer This chart was dictated in whole or in part using Voice Recognition software in a busy, high-work load, and often noisy Emergency Department environment. It may contain unintended and wholly unrecognized errors or omissions. MARLENE ALMARAZ MD Dec 13, 2020 01:07
--- NOTE | 2020-12-13 01:23 | EKG ---
[address] [address] Test Date: 2020-12-13 Test Time: 01:07:15 Pat Name: TYRONE GOLDMAN Department: Room: Gender: F Direct Support Specialist: : 1970 Requested By: MARLENE ALMARAZ Order Number: [id number] Reading MD: Johny Ng MD Measurements Intervals [place] Rate: 81 P: 0 [place]: 176 QRS: 12 QRSD: 92 T: 47 QT: 444 QTc: 522 Interpretive Statements PROBABLE SINUS RHYTHM BASELINE ARTIFACT NON-SPECIFIC ST/T CHANGES Electronically Signed On 12-15-2020 11:02:40 CDT by Johny Ng MD
--- NOTE | 2020-12-13 01:29 | RAD ---
EXAMINATION: XR CHEST 1V CLINICAL HISTORY: Chest pain EXAM DATE/TIME: 12/13/2020 1:16 AM COMPARISON: 11/16/2020 FINDINGS: Lines, Tubes, and Devices: None. Cardiomediastinal Silhouette: Within normal limits. Lungs and Pleura: No evidence of focal airspace consolidation or pleural effusion. Pulmonary vasculat ure unremarkable. Bones and Soft Tissues: No acute osseous abnormality. IMPRESSION: No evidence of acute cardiopulmonary abnormality or significant interval change. Electronically signed by: Nilay Hamilton DO (12/13/2020 1:27 AM) [facility]
[2020-12-13 01:30] LABS: BASO # 0.1 x10^3/uL (0.0-0.2); BASO % 1 % (0-3); EOS # 0.2 x10^3/uL (0.0-0.7); EOS % 2 % (0-3); HEMATOCRIT 40.3 % (36.0-47.0); HEMOGLOBIN 13.5 g/dL (12.0-15.5); LYMPH # 3.5 x10^3/uL (1.0-4.8); LYMPH % 34 % (24-48); MEAN CORPUSCULAR HEMOGLOBIN 29 pg (25-35); MEAN CORPUSCULAR HGB CONC 34 g/dL (31-37); MEAN CORPUSCULAR VOLUME 87 fL (79-100); MONO # 0.6 x10^3/uL (0.0-1.1); MONO % 6 % (0-9); NEUT # 5.8 x10^3uL (1.8-7.7); NEUT % 57 % (31-73); PLATELET COUNT 330 x10^3/uL (140-400); RED BLOOD COUNT 4.64 x10^6/uL (3.50-5.40); RED CELL DISTRIBUTION WIDTH 13.2 % (11.5-14.5); WHITE BLOOD COUNT 10.3 x10^3/uL (4.0-11.0)
[2020-12-13 01:37] LABS: CALCIUM 9.2 mg/dL (8.5-10.1); CREATININE 1.1 mg/dL (0.6-1.0); GFR 52.6; POTASSIUM 3.5 mmol/L (3.5-5.1)
[2020-12-13] MEDS: IV RINGERS SOLUTION,LACTATED 1,000 ML IV SCH ×2 (01:40→06:04)
[2020-12-13 01:49] LABS: ALBUMIN 3.4 g/dL (3.4-5.0); DIRECT BILIRUBIN 0.1 mg/dL (0.0-0.2); TOTAL BILIRUBIN 0.2 mg/dL (0.2-1.0); TOTAL PROTEIN 7.5 g/dL (6.4-8.2)
[2020-12-13] MEDS ORDERED: KETOROLAC 30 MG/ML VIAL. IVP ONE (02:30)
[2020-12-13] MEDS ORDERED: ASPIRIN 325 MG TABLET PO ONE (02:30)
[2020-12-13 03:10] LABS: BACTERIA,URINE FEW /HPF (0-FEW); BILIRUBIN,URINE NEG (NEG); CLARITY,URINE HAZY; COLOR,URINE YELLOW; GLUCOSE,URINE NEG (NEG); NITRITE,URINE NEG (NEG); RBC,URINE 0 /HPF (0-2); SQUAMOUS EPITHELIAL CELL,UR OCC /LPF; UROBILINOGEN,URINE 0.2 mg/dL (0.2 mg/dL)
[2020-12-13 03:27] LABS: BARBITURATES NEG (NEG); BENZODIAZEPINES NEG (NEG); CANNABINOIDS NEG (NEG); COCAINE NEG (NEG); METHADONE NEG (NEG); OPIATES NEG (NEG); PHENCYCLIDINE NEG (NEG)
[2020-12-13 03:28] LABS: AMPHETAMINE/METHAMPHETAMINE NEG (NEG)
[2020-12-13] MEDS ORDERED: ONDANSETRON PF 4 MG/2 ML VIAL. IVP ONE (03:30)
[2020-12-13] MEDS ORDERED: ONDANSETRON PF 4 MG/2 ML VIAL. IVP PRN (04:15)
[2020-12-13] MEDS ORDERED: ACETAMINOPHEN 325 MG TABLET PO PRN (04:15)
[2020-12-13 06:32] VITALS: BP 147/82
--- NOTE | 2020-12-13 06:50 | NUR ---
Admitted in stable condition to 113 via jose from ER; VSS; admission assessment and history complete; room orientation given, verbalized understanding; siderails up x2, call calero in reach.
[2020-12-13] MEDS: ASPIRIN CHEWABLE 81 MG TABLET. PO SCH (08:22)
--- NOTE | 2020-12-13 08:33 | HP ---
DATE OF SERVICE: 12/13/2020 ADMIT DATE: 12/13/2020 ATTENDING PHYSICIAN: Dr. Gomez. CHIEF COMPLAINT: Chest wall pain. HISTORY OF PRESENT ILLNESS: The patient is a 50-year-old white female admitted to the ED with left sided and central chest wall pain. It is anxiety related. She had no recent trauma. It is not associated with any movement. She has had increased pain with deep breath. She has not had any COVID exposure. She had a heart cath at [facility] about 5 years ago, which was clean. Minimal risk factors. She has diabetes and anxiety, but no cigarette use. Initial cardiac enzymes were negative. Chest x-ray was clear. She was admitted overnight for serial enzymes and rule out. PAST MEDICAL HISTORY: Significant for substance abuse. She had been on narcotics and methamphetamine. She has been clean for 2 years. She has had diabetes and anxiety. She has had gastroesophageal reflux disease. PAST SURGICAL HISTORY: Includes appendectomy, cholecystectomy, and hysterectomy for endometriosis. MEDICATIONS: Scheduled medicine includes the following: She was taking Wellbutrin, Soma, dicyclomine, ondansetron, trazodone at bedtime. The trazodone unfortunately is related to weight gain. FAMILY HISTORY: Noncontributory. Mom is alive at age 70. Her biological father at an early age of chronic alcoholism. REVIEW OF SYSTEMS: Significant for weight gain due to the medication, substance abuse. She also has trouble sleeping at night. We had a long discussion, at this time I would recommend that we stop the trazodone and substitute Restoril in lieu. PHYSICAL EXAMINATION: GENERAL: When I saw her, this is a pleasant, middle-aged female. VITAL SIGNS: Initial vital signs showed a weight of 125 kilograms, blood pressure was 128/92, pulse 70 and regular. She was afebrile, oxygen saturation 98% on room air. HEENT: Head is without trauma. Pupils are reactive. Sclerae nonicteric. Oropharynx is clear. NECK: Supple, no bruits identified. LUNGS: Clear to auscultation. CARDIOVASCULAR: Regular heart tones. No gallop. ABDOMEN: Soft. No guarding or rebound tenderness. EXTREMITIES: Without edema. NEUROLOGIC: Focally intact. Speech is fluent. DIAGNOSTIC DATA: Chest x-ray was clear. CBC showed a normal hemoglobin 13.5 grams, white count was normal at 10,000. The electrolytes all within normal range. Creatinine 1.1 mg percent, nonfasting blood sugar 137. First set troponin was negative for coronary ischemia. ASSESSMENT: 1. A 50-year-old female with atypical chest pain, most likely musculoskeletal in nature. 2. History of substance abuse. 3. Obesity. 4. Underlying depression with anxiety. 5. Type 2 diabetes. PLAN: 1. Observation status in the hospital. 2. Serial cardiac enzymes. 3. Diet as tolerated. 4. I will stop her trazodone. 5. Restoril scheduled at bedtime to help with insomnia. Tentative discharge in the morning when enzymes are available. ADALID DR: Erika TID: [id number] CC: Dr. Aide Segovia
[2020-12-13] MEDS ORDERED: FLU VACC QUAD 21-22 (6MOS+) PF 0.5 ML SYRINGE. VAX IM ONE (09:00)
[2020-12-13] MEDS ORDERED: GABA-585 PO (09:10)
[2020-12-13] MEDS ORDERED: BUPR300T3 PO (09:10)
[2020-12-13] MEDS ORDERED: PRAZ1CAP2 PO (09:11)
[2020-12-13] MEDS ORDERED: CARISOPRODOL PO PRN (09:30)
[2020-12-13] MEDS ORDERED: DICYCLOMINE HCL 20 MG TABLET PO PRN (09:30)
[2020-12-13] MEDS ORDERED: ONDANSETRON ODT 4 MG TAB.RAPDIS PO PRN (09:30)
[2020-12-13 10:23] VITALS: BP 142/83
[2020-12-13] MEDS: GABAPENTIN 100 MG CAPSULE. PO SCH ×4 (10:36→20:21)
[2020-12-13] MEDS: buPROPion XL 300 MG TAB.ER.24H. PO SCH (10:36)
[2020-12-13] MEDS: PRAZOSIN 1 MG CAPSULE. PO SCH ×2 (10:36→20:21)
[2020-12-13 11:02] VITALS: BP 118/70
[2020-12-13 13:03] LABS: THYROID STIM HORMONE (TSH) 3.596 uIU/mL (0.358-3.740)
[2020-12-13] MEDS ORDERED: NON FORMULARY ITEM (Meclizine Hcl 1 TAB) PO SCH (14:00)
[2020-12-13 15:33] VITALS: BP 139/84
[2020-12-13 19:45] VITALS: BP 149/78
[2020-12-13] MEDS ORDERED: TEMAZEPAM 15 MG CAPSULE PO SCH (21:00)
[2020-12-14 00:33] VITALS: BP 114/72
[2020-12-14 05:27] VITALS: BP 97/65
[2020-12-14 06:39] VITALS: BP 114/80
[2020-12-14 07:55] LABS: BASO # 0.1 x10^3/uL (0.0-0.2); BASO % 1 % (0-3); EOS # 0.2 x10^3/uL (0.0-0.7); EOS % 2 % (0-3); HEMATOCRIT 40.3 % (36.0-47.0); HEMOGLOBIN 13.5 g/dL (12.0-15.5); LYMPH # 3.3 x10^3/uL (1.0-4.8); LYMPH % 32 % (24-48); MEAN CORPUSCULAR HEMOGLOBIN 29 pg (25-35); MEAN CORPUSCULAR HGB CONC 33 g/dL (31-37); MEAN CORPUSCULAR VOLUME 87 fL (79-100); MONO # 0.7 x10^3/uL (0.0-1.1); MONO % 7 % (0-9); NEUT # 5.9 x10^3uL (1.8-7.7); NEUT % 58 % (31-73); PLATELET COUNT 330 x10^3/uL (140-400); RED BLOOD COUNT 4.64 x10^6/uL (3.50-5.40); RED CELL DISTRIBUTION WIDTH 13.2 % (11.5-14.5); WHITE BLOOD COUNT 10.2 x10^3/uL (4.0-11.0)
[2020-12-14 07:57] LABS: CALCIUM 9.1 mg/dL (8.5-10.1); GFR 58.7; POTASSIUM 4.3 mmol/L (3.5-5.1)
[2020-12-14 08:14] VITALS: BP 114/80
[2020-12-14] MEDS: ASPIRIN CHEWABLE 81 MG TABLET. PO SCH (08:14)
[2020-12-14] MEDS: GABAPENTIN 100 MG CAPSULE. PO SCH (08:14)
[2020-12-14] MEDS: buPROPion XL 300 MG TAB.ER.24H. PO SCH (08:14)
[2020-12-14] MEDS: PRAZOSIN 1 MG CAPSULE. PO SCH (08:14)
[2020-12-14] MEDS ORDERED: predniSONE 20 MG TABLET PO SCH (09:00)
--- NOTE | 2020-12-14 09:04 | DS ---
DATE OF DISCHARGE: 12/14/2020 ATTENDING PHYSICIAN: Dr. Gomez. FINAL DISCHARGE DIAGNOSES: 1. Atypical chest pain, musculoskeletal. 2. Coronary ischemia ruled out. 3. Longstanding history of substance abuse. 4. Obesity. 5. Underlying depression with anxiety. 6. Type 2 diabetes. HISTORY AND PHYSICAL: The patient is a 50-year-old female with multiple medical issues. She was admitted to the ED with atypical chest pain, musculoskeletal in nature. She had been a narcotic and methamphetamine user until several years ago. She states she has been clean for the last two years. She was admitted to the hospital for serial enzymes. PHYSICAL EXAMINATION: Please see the dictated note. PERTINENT LABORATORY AND X-RAY STUDIES: Her coronavirus serology was negative. Admission hemoglobin was 13.5 g/dL with a white count of 10,300. Electrolytes all within normal range. Nonfasting blood sugar was 96 mg percent. Electrolytes: Sodium was 139 mEq per liter, potassium 4.3 mEq per liter. Three sets of cardiac enzymes were negative for coronary ischemia. Total cholesterol was 190. TSH was normal. COURSE IN THE HOSPITAL: The patient was admitted. Home meds were restarted. Serial enzymes were negative. Chest pain dissipated and resolved. I reviewed her medications. I explained to her that the trazodone she is taking to help her sleep is causing weight gain. At this time, I recommended substituting generic Restoril in the form of temazepam 30 mg 1 at bedtime. She had a good night's sleep. I suggested she take this and it will help with her avoiding further weight gain. Therefore, on the second hospital day, she was discharged home with a new prescription for Restoril 30 mg 1 at bedtime, #30 with no refills. In addition, she should continue her bupropion 300 mg daily, Soma p.r.n., dicyclomine 20 mg t.i.d., Neurontin, meclizine p.r.n. and prednisone dose is unchanged. For now, we held her prednisone and her ondansetron. The Restoril is new. I am not sure what she is taking for her diabetes, whether this is borderline or not. Her sugars were adequate and she did not need treatment at this time. She was discharged from our hospital in stable condition with explicit instruction and followup care. SHALONDA DR: DANIEL/chey TID: [id number] CC: Aide Segovia MD
--- NOTE | 2020-12-14 09:12 | NUR ---
PATIENT IS DISCHARGED HOME , DISCHARGE INSTRUCTION REVIEWED, PATIENT VERBALIZED UNDERSTANDING. PATIENT LEFT UNIT VIA AMBULATION ACCOMP BY STEAM ROOM ATTENDANT. PATIENT IS TAKEN HOME BY DAUGHTER VIA PERSONAL VEHICLE.
== END 2020-12-14 09:05 | disposition home or self-care (01) ==
LOC: ER 01:00 → 1 SOUTH 04:08
PROVIDERS: ADMIT Hospitalist; ATTEND Hospitalist
DX: R07.89 Other chest pain (principal); Z20.822 Contact with and (suspected) exposure to COVID-19; E66.01 Morbid (severe) obesity due to excess calories; I25.9 Chronic ischemic heart disease, unspecified; K21.9 Gastro-esophageal reflux disease without esophagitis; E11.9 Type 2 diabetes mellitus without complications; F41.9 Anxiety disorder, unspecified; F32.9 Major depressive disorder, single episode, unspecified; F15.10 Other stimulant abuse, uncomplicated; F19.10 Other psychoactive substance abuse, uncomplicated; Z23 Encounter for immunization; Z87.11 Personal history of peptic ulcer disease; Z79.899 Other long term (current) drug therapy; Z90.49 Acquired absence of other specified parts of digestive tract; Z90.710 Acquired absence of both cervix and uterus; Z98.891 History of uterine scar from previous surgery; Z87.19 Personal history of other diseases of the digestive system; Z68.42 Body mass index [BMI] 45.0-49.9, adult
CPT/HCPCS: 36415; 71045; 80048; 80061; 80076; 80307; 81001; 82550; 83690; 83735; 83880; 84443; 84484; 85025; 85379; 85610; 85730; 87426; 90471; 90686; 93005; 96374; 96375; 96376; 99285; G0238; G0378; J1885; J2405; J3010; J7120; U0003; G0379

== ENCOUNTER → 2021-02-05 | Outpatient (CLI) | payer BC, MEDICARE ==
[~2021-02-05] MED LIST changes: +BUPR300T3 PO; +GABA-585 PO; +PRAZ1CAP2 PO
--- NOTE | 2021-02-05 17:30 | RAD ---
Bilateral digital screening 2-D and 3-D (digital breast tomosynthesis) mammogram: Reason for examination: Routine screening. Comparison: None available. The patient states her prior mammograms were many years ago. Interpretation was made with the benefit of CAD. FINDINGS: Breast density: Category B. There are scattered areas of fibroglandular density. There is an asymmetry in the inferior right breast on the MLO view at middle depth, about 7 cm branch employment coordinator ior to the nipple. This is probably located in the slightly inner breast on the CC images, 5:00 posit ion, about 5 cm from the nipple. No other evidence of breast suspicious breast mass is seen. No malig nant appearing calcifications, or architectural distortion is seen. IMPRESSION: Asymmetry in the right inner lower quadrant. Further evaluation with a diagnostic right mammogram, an d if needed targeted right breast ultrasound, is recommended. Assessment: BI-RADS 0. Incomplete. Additional imaging is recommended. Recommendation: Diagnostic right mammogram. If needed, targeted right breast ultrasound. The patient will receive a letter with the results in the mail. Patient information will be entered i nto the mammography reminder system with a target recall date for the next mammogram. A reminder cindy er will be generated. Electronically signed by: Estella Craig MD (02/05/2021 5:27 PM) [id number]
== END ==
LOC: MAMMO 09:55
PROVIDERS: ATTEND Family Medicine
DX: Z12.31 Encounter for screening mammogram for malignant neoplasm of breast (principal)
CPT/HCPCS: 77063; 77067

== ENCOUNTER 2021-02-23 16:20 | Emergency (ER) | payer MEDICARE ==
[~2021-02-23] VITALS: Ht 162.6 cm; Wt 126.8 kg
--- NOTE | 2021-02-23 19:32 | RAD ---
XR CHEST 1V History: Reason: SOB / Spl. Instructions: / History: Comparison: December 13, 2020 Findings: Mild ill-defined bibasilar opacities. No pleural effusion. No pneumothorax. Normal heart size. Impression: 1. Mild ill-defined bibasilar opacities, may represent atelectasis or developing infiltrates includi ng viral pneumonia. Electronically signed by: Jasbir Dooley DO (02/23/2021 7:29 PM) [facility] [place]
[2021-02-23] MEDS ORDERED: AZITHROMYCIN 250 MG TABLET. PO ONE (19:45)
[2021-02-23] MEDS ORDERED: DEXAMETHASONE SOD PHOS 10 MG/ML VIAL. PO ONE (19:45)
[2021-02-23] MEDS ORDERED: cefTRIAXone IM 1 GM VIAL IM ONE (19:45)
[2021-02-23] MEDS ORDERED: DEXA4TAB63 PO (19:50)
[2021-02-23] MEDS ORDERED: AZIT250T6 PO (19:50)
--- NOTE | 2021-02-23 20:26 | PHYS DOC ---
Past History Past Medical History: Anxiety, Diabetes Additional Past Medical Histor: DDD Past Surgical History: Appendectomy, Cholecystectomy, , Hysterectomy Alcohol Use: None General Adult EDM: Chief Complaint: FEVER HPI: HPI: 50-year-old female presents with body aches, fatigue, fever for the last 5 days. Patient is not vaccinated against COVID-19. She did get vaccinated against the flu. She presents today because she had a fever of 103 at home today. She has mild shortness of breath. Review of Systems: Review of Systems: Constitutional: Fever, body aches, chills, fatigue. Eyes: Denies change in visual acuity HENT: Denies nasal congestion or sore throat Respiratory: Cough with mild shortness of breath Cardiovascular: Denies chest pain or edema GI: Denies abdominal pain, nausea, vomiting, bloody stools or diarrhea : Denies dysuria Musculoskeletal: Denies back pain or joint pain Integument: Denies rash Neurologic: Denies headache, focal weakness or sensory changes Endocrine: Denies polyuria or polydipsia Lymphatic: Denies swollen glands Psychiatric: Denies depression or anxiety Current Medications: Current Meds: Current Medications Medications (Trade) Dose Ordered Sig/Talya Start Time Stop Time Status Last Admin Dose Admin Acetaminophen (Tylenol) 1,000 mg 1X ONCE 02/23/21 20:30 02/23/21 20:31 UNV Azithromycin (Zithromax) 500 mg 1X ONCE 02/23/21 19:45 02/23/21 19:55 DC Ceftriaxone Sodium (Rocephin Im) 1 gm 1X ONCE 02/23/21 19:45 02/23/21 19:55 DC Dexamethasone Sodium Phosphate (Decadron) 10 mg 1X ONCE 02/23/21 19:45 02/23/21 19:55 DC Allergies: Allergies: Allergies Coded Allergies Type Severity Reaction Last Updated Verified Penicillins Allergy Intermediate 02/23/21 Yes Sulfa (Sulfonamide Antibiotics) Allergy Intermediate 12/13/20 Yes ciprofloxacin Allergy Intermediate 12/13/20 Yes hydrocodone Allergy Intermediate 12/13/20 Yes morphine Allergy Intermediate 12/13/20 Yes naproxen Allergy Unknown 12/13/20 Yes Physical Exam: PE: Constitutional: Well developed, well nourished, morbidly obese, no acute dist ress, non-toxic appearance. [] HENT: Normocephalic, atraumatic, bilateral external ears normal, oropharynx moist, no oral exudates, nose normal. [] Eyes: PERRLA, EOMI, conjunctiva normal, no discharge. [] Neck: Normal range of motion, no tenderness, supple, no stridor. [] Cardiovascular: Heart rate regular rhythm, no murmur [] Lungs & Thorax: Bilateral breath sounds clear to auscultation [] Abdomen: Bowel sounds normal, soft, no tenderness, no masses, no pulsatile masses. [] Skin: Warm, dry, no erythema, no rash. [] Back: No tenderness, no CVA tenderness. [] Extremities: No tenderness, no cyanosis, no clubbing, ROM intact, no edema. [] Neurologic: Alert and oriented X 3, normal motor function, normal sensory function, no focal deficits noted. [] Psychologic: Affect normal, judgement normal, mood normal. [] Current Patient Data: Vital Signs: Vital Signs Date Time Temp Pulse Resp B/P (MAP) Pulse Ox O2 Delivery O2 Flow Rate FiO2 02/23/21 19:02 100.4 114 26 152/82 (105) 95 Room Air EKG: EKG: [] Radiology/Procedures: Radiology/Procedures: [] Heart Score: C/O Chest Pain: N/A Risk Factors: Risk Factors: DM, Current or recent (<one month) smoker, HTN, HLP, family history of CAD, obesity. Risk Scores: Score 0 - 3: 2.5% MACE over next 6 weeks - Discharge Home Score 4 - 6: 20.3% MACE over next 6 weeks - Admit for Clinical Observation Score 7 - 10: 72.7% MACE over next 6 weeks - Early Invasive Strategies Course & Med Decision Making: Course & Med Decision Making Pertinent Labs and Imaging studies reviewed. (See chart for details) Patient's chest x-ray shows bilateral infiltrates likely COVID-19 pneumonia. Patient was given a gram of Tylenol for fever. I will treat her with Rocephin, azithromycin, Decadron. She does not meet admission criteria. She is stable for discharge at this time. [] Dragon Disclaimer: Dragon Disclaimer: This electronic medical record was generated, in whole or in part, using a voice recognition dictation system. Departure Departure: Impression: Primary Impression: COVID-19 Disposition: HOME / SELF CARE / HOMELESS Condition: STABLE Patient Instructions: Viral Syndrome Additional Instructions: You have been tested for or diagnosed with COVID-19. It is an infection caused by a new type of coronavirus. COVID-19 will cause cold-like or mild flu symptoms in most. It can cause more severe symptoms like problems breathing in some. There is no treatment for COVID-19. The body will clear the infection over time. Self-care will help to ease discomfort. Steps to Take: Self-Care Rest as needed. Healthy habits may help you feel better. Steps include: Choose healthy foods including fruits and vegetables. Drink water throughout the day. Get plenty of sleep each night. If you smoke, try to quit. It may ease breathing. Avoid alcohol. Keep Others Healthy The virus can spread to others. Droplets are released every time you sneeze or cough. The droplets can get into the mouth, nose, or eyes of people near you and lead to infection. To lower the chances of spreading COVID-19 to others: Stay at home until your doctor has said it is safe to leave. If you tested positive this will mean staying isolated until both of the following are true: At least 7 days have passed since the start of illness. You are free of fever for at least 72 hours without the use of medicine. During this time: - Avoid public areas, events, or transportation. Do not return to work or school until your doctor has said it is safe to do so. - Call ahead if you need to go to a medical center. Let them know you may have COVID-19. It will help them guide you where to go. They may also ask you to wear a facemask when you come to the office. - If you call for emergency medical services, let them know you may have COVID- 19. While at home: - Try to avoid close contact with others. Stay about 6 feet away. - If possible, spend most of your time in a separate room from others. - Use a face mask if you will be in close contact with others such as sharing a room or vehicle. - Have someone wipe down common surfaces in the home. Use household soft metals engraver hand every day on areas like doorknobs, counters, or sinks. - Cough or sneeze into a tissue. Throw the tissue away right after use. If a tissue is not available, cough or sneeze into your elbow. - Wash your hands often. Wash them after sneezing or coughing. Use soap and water and wash for at least 20 seconds. Alcohol based hand bladder cleaner can be used if soap and water is not available. - Do not prepare food for others. Avoid sharing personal items like forks, spoons, or toothbrushes. - Avoid close contact with pets while you are sick. There is no evidence of the virus passing to pets. This is a safety step until more is known about this virus. Isolation can be frustrating. Social interaction can help. Keep in touch with friends and family through phone and tech options. You can still interact with others in your home, just keep a safe distance of about 6 feet. Follow-up: Your doctors office will check in with you to see if there are any changes in your health. You may be asked to keep track of symptoms to share with them. They will also let you know when you are clear to be in public again. Problems to Look Out For: Contact your doctor if your recovery is not going as you expect. Get emergency care if you have problems such as: - Trouble breathing - Nonstop chest pain or pressure - Changes in awareness, confusion, or problems waking - Lips or face have bluish color - Worsening of symptoms If you think you have an emergency, call for emergency medical services right aw ay. As taken from [facility] Dexamethasone (Decadron) 4 Mg Tablet 1 TAB PO BID for COVID for 4 Days, #8 TAB 0 Refills Prov: RADHA BAKER DO 02/23/21 Azithromycin (AZITHROMYCIN TABLET) 250 Mg Tablet 250 MG PO DAILY for ANTI-BIOTIC for 4 Days, #4 TAB 0 Refills Prov: RADHA BAKER DO 02/23/21 RADHA BAKER DO Feb 23, 2021 20:26
[2021-02-23] MEDS ORDERED: LIDOCAINE 1% Multi-Dose 20 ML VIAL. ONE (20:27)
[2021-02-23 20:29] VITALS: BP 138/87
[2021-02-23 20:30] LABS: INFLUENZA A PATIENT NEGATIVE (NEGATIVE); INFLUENZA B PATIENT NEGATIVE (NEGATIVE)
[2021-02-23] MEDS ORDERED: ACETAMINOPHEN 500 MG TABLET PO ONE (20:30)
--- NOTE | 2021-02-26 09:26 | NUR ---
POSITIVE COVID RESULTS GIVEN BY .
== END 2021-02-23 20:39 | disposition home or self-care (01) ==
LOC: ER 16:20
DX: U07.1 COVID-19 (principal); F41.9 Anxiety disorder, unspecified; E11.9 Type 2 diabetes mellitus without complications; Z88.0 Allergy status to penicillin; Z88.2 Allergy status to sulfonamides; Z88.1 Allergy status to other antibiotic agents; Z88.5 Allergy status to narcotic agent
CPT/HCPCS: 71045; 87804; 96372; 99283; C9803; J0696; J1100; U0003